=== PATIENT | male | born 1985 | race Caucasian/White ===

== ENCOUNTER → 2021-06-17 | Outpatient (CLI) | payer BC ==
[~2021-06-17] VITALS: Ht 175.3 cm; Wt 73.1 kg
[2021-06-17 12:42] VITALS: BP 156/113; PULSE 118; TEMP 98.1
[2021-06-17 13:40] VITALS: BP 145/96; PULSE 118
== END ==
LOC: COL.RAD 09:45
DX: D69.6 Thrombocytopenia, unspecified (principal); D64.9 Anemia, unspecified; R59.0 Localized enlarged lymph nodes; R16.1 Splenomegaly, not elsewhere classified
CPT/HCPCS: 32106

== ENCOUNTER → 2021-06-19 | Outpatient (CLI) | payer BC | LOC: COL.RAD 08:05 | DX: R16.2 Hepatomegaly with splenomegaly, not elsewhere classified (principal); R59.0 Localized enlarged lymph nodes; D64.9 Anemia, unspecified; D69.6 Thrombocytopenia, unspecified | CPT/HCPCS: Q9967 ==